=== PATIENT | male | born 1995 | race Native Hawaiian/Other Pacific Islander ===

== ENCOUNTER 2021-08-02 12:13 | Emergency (ER) | payer OTHER ==
[~2021-08-02] VITALS: Ht 185.4 cm; Wt 145.2 kg
[2021-08-02 14:12] VITALS: BP 145/83; TEMP 98.9
== END 2021-08-02 14:12 | disposition home or self-care (01) ==
LOC: ED 12:13
DX: J06.9 Acute upper respiratory infection, unspecified (principal); R50.9 Fever, unspecified; Z20.822 Contact with and (suspected) exposure to COVID-19; F17.220 Nicotine dependence, chewing tobacco, uncomplicated
CPT/HCPCS: 87502; 87635; 87651; 99283; U0003

== ENCOUNTER 2021-11-02 13:29 | Outpatient (CLI) | payer OTHER ==
[2021-11-02 13:47] LABS: PLATELET COUNT 359 K/uL (142-355)
[2021-11-02 14:09] LABS: POTASSIUM 4.5 mmol/L (3.6-5.2)
== END 2021-11-02 19:22 | disposition home or self-care (01) ==
LOC: LAB 13:29
PROVIDERS: ATTEND Nurse Practitioner Family
DX: E66.9 Obesity, unspecified (principal); R53.83 Other fatigue; R03.0 Elevated blood-pressure reading, without diagnosis of hypertension; R53.81 Other malaise; Z13.220 Encounter for screening for lipoid disorders; Z13.1 Encounter for screening for diabetes mellitus; Z13.29 Encounter for screening for other suspected endocrine disorder
CPT/HCPCS: 80053; 80061; 82306; 82607; 83036; 84402; 84403; 84439; 84443; 85027

== ENCOUNTER 2022-02-08 13:36 | Outpatient (CLI) | payer OTHER ==
[2022-02-08 13:50] LABS: PLATELET COUNT 293 K/uL (142-355)
[2022-02-08 14:10] LABS: POTASSIUM 4.5 mmol/L (3.6-5.2)
== END 2022-02-08 20:02 | disposition home or self-care (01) ==
LOC: LAB 13:36
PROVIDERS: ATTEND Nurse Practitioner Family
DX: R03.0 Elevated blood-pressure reading, without diagnosis of hypertension (principal); E78.00 Pure hypercholesterolemia, unspecified; D72.829 Elevated white blood cell count, unspecified; E55.9 Vitamin D deficiency, unspecified; E66.9 Obesity, unspecified; R53.83 Other fatigue; R53.81 Other malaise; R79.89 Other specified abnormal findings of blood chemistry
CPT/HCPCS: 80053; 80061; 82306; 84402; 84403; 84439; 84443; 85027